=== PATIENT | male | born 1960 ===

== ENCOUNTER 2017-12-30 07:45 | Inpatient (IN) | payer OTHER ==
[~2017-12-30] VITALS: Ht 175.3 cm; Wt 68.0 kg
[2018-01-05] MEDS ORDERED: ARICEPT5 MG PO (10:31)
[2018-01-05] MEDS ORDERED: RESTORIL15 MG PO (10:31)
[2018-01-05] MEDS ORDERED: TRILEPTAL300 MG PO (10:31)
[2018-01-05] MEDS ORDERED: STRATTERA100 MG PO ×2 (10:31→10:32)
[2018-01-07] MEDS ORDERED: ELIQUIS2.5 MG PO (08:10)
[2018-01-07] MEDS ORDERED: DUI500 PO (08:10)
[2018-01-07] MEDS ORDERED: PERCOCET 5-3251 EACH PO (08:10)
== END 2018-01-07 10:33 | DRG 470 ==
LOC: O/R 01-04 06:30 → SURG 01-04 06:30 → SURH 01-04 07:00 → SURG 01-04 21:29
PROVIDERS: Orthopaedic Surgery
PROC: 0SRB0JZ Replacement of Left Hip Joint with Synthetic Substitute, Open Approach (ICD-10-PCS; principal; 2018-01-04 07:00)
DX: M16.12 Unilateral primary osteoarthritis, left hip (principal); D62 Acute posthemorrhagic anemia; F90.9 Attention-deficit hyperactivity disorder, unspecified type

== ENCOUNTER 2018-07-14 13:00 | Inpatient (IN) | payer OTHER ==
[~2018-07-14] VITALS: Ht 177.8 cm; Wt 73.5 kg
[~2018-07-14 13:00] MED LIST: ARICEPT5 MG PO; DUI500 PO; ELIQUIS2.5 MG PO; PERCOCET 5-3251 EACH PO; RESTORIL15 MG PO; STRATTERA100 MG PO; TRILEPTAL300 MG PO
[2018-08-23] MEDS ORDERED: RESTORIL15 MG PO (10:15)
[2018-09-01] MEDS ORDERED: PERCOCET 5-3251 EACH PO (14:22)
[2018-09-01] MEDS ORDERED: DUI500 PO (14:22)
[2018-09-01] MEDS ORDERED: ELIQUIS2.5 MG PO (14:22)
== END 2018-09-02 17:45 | DRG 470 ==
LOC: SURG 08-30 06:36 → O/R 08-30 06:36 → SURH 08-30 09:00 → SURG 08-30 21:04
PROVIDERS: ADMIT Orthopaedic Surgery
PROC: 0SR902Z Replacement of Right Hip Joint with Metal on Polyethylene Synthetic Substitute, Open Approach (ICD-10-PCS; principal; 2018-08-30 13:00)
DX: M16.11 Unilateral primary osteoarthritis, right hip (principal); M87.051 Idiopathic aseptic necrosis of right femur; D62 Acute posthemorrhagic anemia; M25.751 Osteophyte, right hip; M70.61 Trochanteric bursitis, right hip; F90.9 Attention-deficit hyperactivity disorder, unspecified type